=== PATIENT | female | born 1980 | race Caucasian/White ===

== ENCOUNTER 2017-05-19 20:06 | Emergency (ER) | payer BC ==
[2017-05-19] MEDS ORDERED: Morphine 10 MG/ML Syringe IM ONE (20:33)
[2017-05-19] MEDS ORDERED: Ondansetron 4 MG/2 ML SDV IM ONE (20:34)
--- NOTE | 2017-05-19 22:29 | ER ---
DATE SEEN: 05/19/2017 CHIEF COMPLAINT: Headache. HISTORY OF PRESENT ILLNESS: This is a 37-year-old female with a headache that started this morning. Insidious onset, initially right-sided, now left-sided with flashing lights on the left. Took some ibuprofen or Aleve with no improvement. Associated with nausea and 1 episode of vomiting. REVIEW OF SYSTEMS: No fever or chills. No neck stiffness. No chest pain. PAST MEDICAL HISTORY: Migraine headaches when she was young. ALLERGIES: No known allergies except sulfa. PHYSICAL EXAMINATION: GENERAL: She is sick-appearing. VITAL SIGNS: Blood pressure is 142/84 and pulse is 62. She is afebrile. ENT: Negative. HEAD: Normal size. EYES: DANI. NECK: Supple. NEUROLOGIC: No focal findings. LABORATORY DATA: None. IMPRESSION: Migraine headache. PLAN: Morphine and Zofran IM and rest. Follow up in the office tomorrow. Return if symptoms have not improved. Time seen was 2030 hours. /[id number]
== END 2017-05-19 21:03 | disposition home or self-care (01) ==
LOC: FB.ED 20:06
DX: G43.909 Migraine, unspecified, not intractable, without status migrainosus (principal)
CPT/HCPCS: 96372; 99283; J2270; J2405